=== PATIENT | male | born 1970 | race African-American/Black ===

== ENCOUNTER 2017-06-04 13:31 | Inpatient (IN) | payer OTHER ==
[2017-06-04 14:17] VITALS: BMI 32.5
--- NOTE | 2017-06-04 15:04 | HP ---
CIWA Score - CIWA Score Nausea/Vomitin-Mild Nausea/No Vomiting Muscle Tremors: 4-Moderate,w/Arms Extend Anxiety: 3 Agitation: 4-Moderately Restless Paroxysmal Sweats: 3 Orientation: 0-Oriented Tacttile Disturbances: 0-None Auditory Disturbances: 0-None Visual Disturbances: 0-None Headache: 0-None Present CIWA-Ar Total Score: 15 Admission ROS BHS - HPI Chief Complaint: I am here for detox. Allergies/Adverse Reactions: Allergies Allergy/AdvReac Type Severity Reaction Status Date / Time No Known Allergies Allergy Verified 06/04/17 14:37 History of Present Illness: Pt is a 46yr old male with a history of alcohol dependence only seeking detox for treatment. Exam Limitations: Intoxication - Ebola screening Have you traveled outside of the country in the last 21 days: No Have you had contact with anyone from an Ebola affected area: No Have you been sick,other than usual withdrawal symptoms: No Do you have a fever: No - Review of Systems Constitutional: Chills, Diaphoresis, Loss of Appetite, Night Sweats, Changes in sleep EENT: reports: Blurred Vision Respiratory: reports: No Symptoms reported Cardiac: reports: No Symptoms Reported GI: reports: Poor Appetite, Poor Fluid Intake : reports: No Symptoms Reported Musculoskeletal: reports: No Symptoms Reported Integumentary: reports: Flushing, Sweating Neuro: reports: Tingling, Tremors Endocrine: reports: Excessive Sweating, Flushing, Intolerance to Cold, Intolerance to Heat Hematology: reports: No Symptoms Reported Psychiatric: reports: No Sypmtoms Reported, Judgement Intact, Mood/Affect Appropiate, Orientated x3, Agitated, Anxious Other Systems: Reviewed and Negative Patient History - Patient Medical History Hx Anemia: No Hx Asthma: No Hx Chronic Obstructive Pulmonary Disease (COPD): No Hx Cancer: No Hx Cardiac Disorders: No Hx Congestive Heart Failure: No Hx Hypertension: Yes Hx Hypercholesterolemia: No Hx Pacemaker: No HX Cerebrovascular Accident: No Hx Seizures: No Hx Dementia: No Hx Diabetes: No Hx Gastrointestinal Disorders: No Hx Liver Disease: No Hx Genitourinary Disorders: No Hx Sexually Transmitted Disorders: Yes (gonorrhea at age 16) Hx Renal Disease (ESRD): No Hx Thyroid Disease: No Hx Human Immunodeficiency Virus (HIV): No (negative) Hx Hepatitis C: No (negative) Hx Depression: No Hx Suicide Attempt: No (denies) Hx Bipolar Disorder: No Hx Schizophrenia: No - Patient Surgical History Past Surgical History: No Hx Neurologic Surgery: No Hx Cataract Extraction: No Hx Cardiac Surgery: No Hx Lung Surgery: No Hx Breast Surgery: No Hx Breast Biopsy: No Hx Abdominal Surgery: No Hx Appendectomy: No Hx Cholecystectomy: No Hx Genitourinary Surgery: No Hx Section: No Hx Orthopedic Surgery: Yes Anesthesia Reaction: No - PPD History Previous Implant?: Yes Documented Results: Negative w/o proof Implanted On Prior R Admission?: No PPD to be Administered?: Yes - Reproductive History Patient is a Female of Child Bearing Age (11 -55 yrs old): No - Smoking Cessation Smoking history: Never smoked Have you smoked in the past 12 months: No Hx Chewing Tobacco Use: No Initiated information on smoking cessation: No - Substance & Tx. History Hx Alcohol Use: Yes Hx Substance Use: No Substance Use Type: Alcohol Hx Substance Use Treatment: Yes (last detox [facility] 2yrs ago. ) - Substances Abused Alcohol-cognac/beer Route: Oral Frequency: Daily Amount used: 2 pts./3-6 pks. Age of first use: 14 Date of Last Use: 06/04/17 Family Disease History - Family Disease History Family History: Denies Admission Physical Exam BHS - Vital Signs Vital Signs: Vital Signs - 24 hr 06/04/17 14:09 Temperature 98.2 F Pulse Rate 81 Respiratory 20 Rate Blood Pressure 157/121 - Physical General Appearance: Yes: Appropriately Dressed, Moderate Distress, Tremorous, Irritable, Sweating, Anxious HEENTM: Yes: Hearing grossly Normal, Normal Voice Respiratory: Yes: Lungs Clear, Normal Breath Sounds, No Respiratory Distress Neck: Yes: No masses,lesions,Nodules Breast: Yes: Within Normal Limits Cardiology: Yes: Regular Rhythm, Regular Rate, S1, S2 Abdominal: Yes: Normal Bowel Sounds, Non Tender, Soft Genitourinary: Yes: Within Normal Limits Back: Yes: Normal Inspection Musculoskeletal: Yes: full range of Motion, Gait Steady, Back pain Extremities: Yes: Normal Capillary Refill, Normal Inspection, Tremors Neurological: Yes: Fully Oriented, Alert, Normal Response Integumentary: Yes: Normal Color, Diaphoresis Lymphatic: Yes: Within Normal Limits - Diagnostic (1) Alcohol dependence with uncomplicated withdrawal Current Visit: Yes Status: Chronic (2) Hypertension Current Visit: Yes Status: Chronic Qualifiers: Hypertension type: essential hypertension Qualified Code(s): I10 - Essential (primary) hypertension; I10 - Essential (primary) hypertension; I10 - Essential (primary) hypertension Cleared for Admission [facility] - Detox or Rehab [facility] Level of Care: Medically Managed Detox Regimen/Protocol: Librium [facility] Breath Alcohol Content Breath Alcohol Content: 0.376 Urine Drug Screen - Results Drug Screen Negative: Yes
[2017-06-04] MEDS ORDERED: LOPERAMIDE HCL 2 MG CAPSULE PO PRN (15:05)
[2017-06-04] MEDS ORDERED: P-EPHED 60MG/TRIPROLIDI 2.5MG TABLET PO PRN (15:05)
[2017-06-04] MEDS ORDERED: MAG HYDROX/AL HYDROX/SIMETH 30 ML UNIT-DOSE CUP PO PRN (15:05)
[2017-06-04] MEDS ORDERED: MAGNESIUM HYDROX 2400MG/30ML ORAL SUSPENSION 30 ML CUP PO PRN (15:05)
[2017-06-04] MEDS ORDERED: MAGNESIUM CITRATE 300 ML BOTTLE PO PRN (15:05)
[2017-06-04] MEDS ORDERED: chlordiazePOXIDE HCL 25 MG CAPSULE PO ONE (15:05)
[2017-06-04] MEDS ORDERED: ACETAMINOPHEN 325 MG TABLET (FP) PO PRN (15:05)
[2017-06-04] MEDS ORDERED: hydrOXYzine PAMOATE 50 MG CAPSULE (FP) PO PRN (15:05)
[2017-06-04] MEDS ORDERED: IBUPROFEN 400 MG TABLET (FP) PO PRN (15:05)
[2017-06-04] MEDS ORDERED: MENTHOL/PHENOL 1 EACH UD MM PRN (15:05)
[2017-06-04] MEDS ORDERED: guaiFENesin/D-METHORPHAN HB 10 ML UNIT-DOSE CUPS PO PRN (15:05)
[2017-06-04] MEDS ORDERED: chlordiazePOXIDE HCL 25 MG CAPSULE PO PRN (15:05)
[2017-06-04] MEDS: chlordiazePOXIDE HCL 25 MG CAPSULE PO SCH ×2 (17:19→22:03)
[2017-06-04 18:44] LABS: URINE APPEARANCE CLEAR; URINE BILIRUBIN NEGATIVE (NEGATIVE); URINE BLOOD 1+ (NEGATIVE); URINE COLOR COLORLESS; URINE GLUCOSE (UA) 1+ (NEGATIVE); URINE KETONE NEGATIVE (NEGATIVE); URINE LEUK ESTERASE NEGATIVE (NEGATIVE); URINE NITRITE NEGATIVE (NEGATIVE); URINE PROTEIN NEGATIVE (NEGATIVE); URINE UROBILINOGEN NEGATIVE mg/dL (0.2-1.0)
[2017-06-04] MEDS: THIAMINE HCL 100 MG TABLET (FP) PO SCH (22:03)
[2017-06-04] MEDS: diphenhydrAMINE HCL 50 MG CAPSULE PO PRN (22:03)
[2017-06-05] MEDS: chlordiazePOXIDE HCL 25 MG CAPSULE PO SCH ×4 (05:42→22:10)
[2017-06-05 09:49] LABS: MCH 31.6 pg (25.7-33.7); MCHC 33.3 g/dl (32.0-35.9); MEAN CELL VOLUME 95.1 fl (80-96); MEAN PLT VOLUME 7.5 fl (7.5-11.1); PLATELET COUNT 328 K/MM3 (134-434); RDW 14.9 % (11.9-15.9)
--- NOTE | 2017-06-05 09:55 | EKG ---
Test Reason : Blood Pressure : / mmHG Vent. Rate : 068 BPM Atrial Rate : 068 BPM P-R Int : 166 ms QRS Dur : 086 ms QT Int : 418 ms P-R-T Axes : 067 046 056 degrees QTc Int : 444 ms NORMAL SINUS RHYTHM MINIMAL VOLTAGE CRITERIA FOR LVH, MAY BE NORMAL VARIANT BORDERLINE ECG NO PREVIOUS ECGS AVAILABLE Confirmed by JUDY JORGENSEN MD ([id number]) on 06/05/2017 9:55:16 AM Referred By: Confirmed By:JUDY JORGENSEN MD
[2017-06-05] MEDS: PRENATAL VITAMINS W/ FOLIC ACID TABLET (FP) PO SCH (10:07)
[2017-06-05] MEDS: HYDROCHLOROTHIAZIDE 25 MG TABLET (FP) PO SCH (10:08)
[2017-06-05 10:13] LABS: ALBUMIN 4.3 g/dl (3.4-5.0); ALK PHOS 44 U/L (45-117); ANION GAP 8 (8-16); BILIRUBIN,TOTAL 0.5 mg/dL (0.2-1.0); CO2 30 mmol/L (21-32); CREATININE 1.1 mg/dL (0.7-1.3); GLUCOSE,RANDOM 98 mg/dL (74-106); SGOT/AST 45 U/L (15-37); SGPT/ALT 44 U/L (12-78); TOT PROT 8.2 g/dl (6.4-8.2)
[2017-06-05] MEDS: amLODIPine BESYLATE 10 MG TABLET (FP) PO SCH (11:03)
--- NOTE | 2017-06-05 11:15 | CONSULT ---
[facility] Psychiatric Consult - Data Date of interview: 06/05/17 Admission source: [facility]PD Identifying data: Mr Chavarria is a 46 years old Black male, father of 5 children, unemployed on public assistance, living with family Substance Abuse History: Reports history of alcohol use. He started drinking alcohol at age 14, consumes 2 pints of cognac & 3x 6pk of beer daily. Last drank on 06/04/17 Medical History: Significant for HTN. Alcohol-related seizure and treatment for Gonorrhea Psychiatric History: Reports that he has been seeing a therapist for anger management at [facility] for the past 3 months. Denies previous psychiatric treatment with medication, psychiatric hospitalization or suicidal attempt Physical/Sexual Abuse/Trauma History: Denies history of verbal, physical or sexual abuse as DV relationship. No service Additional Comment: Reports history of 4 previous misdemeanors. No probation at present Mental Status Exam - Mental Status Exam Alert and Oriented to: Time, Place, Person Cognitive Function: Fair Patient Appearance: Well Groomed Mood: Hopeful, Euthymic Patient Behavior: Cooperative Speech Pattern: Clear Voice Loudness: Normal Thought Process: Intact, Goal Oriented Hallucinations: Denies Suicidal Ideation: Denies Homicidal Ideation: Denies Insight/Judgement: Poor Sleep: Well Appetite: Good Muscle strength/Tone: Normal Gait/Station: Normal Psychiatric Findings - Problem List ([place] 1, 2,3) (1) Impulse control disorder Current Visit: Yes Status: Acute (2) Intermittent explosive disorder Current Visit: Yes Status: Ruled-out (3) Alcohol dependence with uncomplicated withdrawal Current Visit: Yes Status: Chronic (4) Hypertension Current Visit: Yes Status: Chronic Qualifiers: Hypertension type: essential hypertension Qualified Code(s): I10 - Essential (primary) hypertension; I10 - Essential (primary) hypertension; I10 - Essential (primary) hypertension - Initial Treatment Plan Initial Treatment Plan: Continue inpatient detoxification
--- NOTE | 2017-06-05 12:29 | PN ---
[facility] CIWA - CIWA Score Nausea/Vomitin-No Nausea/No Vomiting Muscle Tremors: 4-Moderate,w/Arms Extend Anxiety: 4-Mod. Anxious/Guarded Agitation: 4-Moderately Restless Paroxysmal Sweats: 1-Minimal Palms Moist Orientation: 0-Oriented Tacttile Disturbances: 3-Moderate Itch/Numb/Burn Auditory Disturbances: 0-None Visual Disturbances: 0-None Headache: 0-None Present CIWA-Ar Total Score: 16 BHS Progress Note (SOAP) Subjective: ANXIETY,SWEATS, TREMORS,INTERMITTENT SLEEP. Objective: 06/05/17 12:28 Vital Signs Temperature 98.5 F 06/05/17 09:10 Pulse Rate 86 06/05/17 09:10 Respiratory Rate 18 06/05/17 09:10 Blood Pressure 159/102 06/05/17 09:10 O2 Sat by Pulse Oximetry (%) Laboratory Last Values WBC 3.0 K/mm3 (4.0-10.0) L 06/05/17 06:20 RBC 4.80 M/mm3 (4.00-5.60) 06/05/17 06:20 Hgb 15.2 GM/dL (11.7-16.9) 06/05/17 06:20 Hct 45.7 % (35.4-49) 06/05/17 06:20 MCV 95.1 fl (80-96) 06/05/17 06:20 MCH 31.6 pg (25.7-33.7) 06/05/17 06:20 MCHC 33.3 g/dl (32.0-35.9) 06/05/17 06:20 RDW 14.9 % (11.9-15.9) 06/05/17 06:20 Plt Count 328 K/MM3 (134-434) 06/05/17 06:20 MPV 7.5 fl (7.5-11.1) 06/05/17 06:20 Sodium 142 mmol/L (136-145) 06/05/17 06:20 Potassium 4.2 mmol/L (3.5-5.1) 06/05/17 06:20 Chloride 104 mmol/L (98-107) 06/05/17 06:20 Carbon Dioxide 30 mmol/L (21-32) 06/05/17 06:20 Anion Gap 8 (8-16) 06/05/17 06:20 BUN 7 mg/dL (7-18) 06/05/17 06:20 Creatinine 1.1 mg/dL (0.7-1.3) 06/05/17 06:20 Creat Clearance w eGFR > 60 (>60) 06/05/17 06:20 Random Glucose 98 mg/dL (74-106) 06/05/17 06:20 Calcium 9.0 mg/dL (8.5-10.1) 06/05/17 06:20 Total Bilirubin 0.5 mg/dL (0.2-1.0) 06/05/17 06:20 AST 45 U/L (15-37) H 06/05/17 06:20 ALT 44 U/L (12-78) 06/05/17 06:20 Alkaline Phosphatase 44 U/L (45-117) L 06/05/17 06:20 Total Protein 8.2 g/dl (6.4-8.2) 06/05/17 06:20 Albumin 4.3 g/dl (3.4-5.0) 06/05/17 06:20 Urine Color Colorless 06/04/17 17:45 Urine Appearance Clear 06/04/17 17:45 Urine pH 6.0 (5.0-8.0) 06/04/17 17:45 Ur Specific [place] <= 1.005 (1.005-1.025) 06/04/17 17:45 Urine Protein Negative (NEGATIVE) 06/04/17 17:45 Urine Glucose (UA) 1+ (NEGATIVE) H 06/04/17 17:45 Urine Ketones Negative (NEGATIVE) 06/04/17 17:45 Urine Blood 1+ (NEGATIVE) H 06/04/17 17:45 Urine Nitrite Negative (NEGATIVE) 06/04/17 17:45 Urine Bilirubin Negative (NEGATIVE) 06/04/17 17:45 Urine Urobilinogen Negative mg/dL (0.2-1.0) 06/04/17 17:45 Urine RBC None /hpf (0-3) 06/04/17 17:45 Urine WBC None /hpf (3-5) 06/04/17 17:45 Ur Epithelial Cells Rare /hpf (FEW) 06/04/17 17:45 RPR Titer Nonreactive (NONREACTIVE) 06/05/17 06:20 Assessment: 06/05/17 12:28 WITHDRAWAL SX Plan: CONTINUE DETOX
[2017-06-05] MEDS: diphenhydrAMINE HCL 50 MG CAPSULE PO PRN (22:10)
[2017-06-05] MEDS: THIAMINE HCL 100 MG TABLET (FP) PO SCH (22:10)
[2017-06-06] MEDS: chlordiazePOXIDE HCL 25 MG CAPSULE PO SCH ×2 (05:43→10:21)
[2017-06-06] MEDS: HYDROCHLOROTHIAZIDE 25 MG TABLET (FP) PO SCH (10:21)
[2017-06-06] MEDS: PRENATAL VITAMINS W/ FOLIC ACID TABLET (FP) PO SCH (10:21)
[2017-06-06] MEDS: amLODIPine BESYLATE 10 MG TABLET (FP) PO SCH (10:21)
--- NOTE | 2017-06-06 11:48 | PN ---
[facility] CIWA - CIWA Score Nausea/Vomitin-No Nausea/No Vomiting Muscle Tremors: 4-Moderate,w/Arms Extend Anxiety: 4-Mod. Anxious/Guarded Agitation: 4-Moderately Restless Paroxysmal Sweats: 1-Minimal Palms Moist Orientation: 0-Oriented Tacttile Disturbances: 3-Moderate Itch/Numb/Burn Auditory Disturbances: 0-None Visual Disturbances: 0-None Headache: 0-None Present CIWA-Ar Total Score: 16 BHS Progress Note (SOAP) Subjective: ANXIETY,SWEATS, DECREASED TREMORS. Objective: 06/06/17 11:47 Vital Signs 06/06/17 06/06/17 06:26 09:20 Temperature 96.3 F L 96.8 F L Pulse Rate 75 79 Respiratory 18 18 Rate Blood Pressure 133/95 149/99 Laboratory Last Values WBC 3.0 K/mm3 (4.0-10.0) L 06/05/17 06:20 RBC 4.80 M/mm3 (4.00-5.60) 06/05/17 06:20 Hgb 15.2 GM/dL (11.7-16.9) 06/05/17 06:20 Hct 45.7 % (35.4-49) 06/05/17 06:20 MCV 95.1 fl (80-96) 06/05/17 06:20 MCH 31.6 pg (25.7-33.7) 06/05/17 06:20 MCHC 33.3 g/dl (32.0-35.9) 06/05/17 06:20 RDW 14.9 % (11.9-15.9) 06/05/17 06:20 Plt Count 328 K/MM3 (134-434) 06/05/17 06:20 MPV 7.5 fl (7.5-11.1) 06/05/17 06:20 Sodium 142 mmol/L (136-145) 06/05/17 06:20 Potassium 4.2 mmol/L (3.5-5.1) 06/05/17 06:20 Chloride 104 mmol/L (98-107) 06/05/17 06:20 Carbon Dioxide 30 mmol/L (21-32) 06/05/17 06:20 Anion Gap 8 (8-16) 06/05/17 06:20 BUN 7 mg/dL (7-18) 06/05/17 06:20 Creatinine 1.1 mg/dL (0.7-1.3) 06/05/17 06:20 Creat Clearance w eGFR > 60 (>60) 06/05/17 06:20 Random Glucose 98 mg/dL (74-106) 06/05/17 06:20 Calcium 9.0 mg/dL (8.5-10.1) 06/05/17 06:20 Total Bilirubin 0.5 mg/dL (0.2-1.0) 06/05/17 06:20 AST 45 U/L (15-37) H 06/05/17 06:20 ALT 44 U/L (12-78) 06/05/17 06:20 Alkaline Phosphatase 44 U/L (45-117) L 06/05/17 06:20 Total Protein 8.2 g/dl (6.4-8.2) 06/05/17 06:20 Albumin 4.3 g/dl (3.4-5.0) 06/05/17 06:20 Urine Color Colorless 06/04/17 17:45 Urine Appearance Clear 06/04/17 17:45 Urine pH 6.0 (5.0-8.0) 06/04/17 17:45 Ur Specific [place] <= 1.005 (1.005-1.025) 06/04/17 17:45 Urine Protein Negative (NEGATIVE) 06/04/17 17:45 Urine Glucose (UA) 1+ (NEGATIVE) H 06/04/17 17:45 Urine Ketones Negative (NEGATIVE) 06/04/17 17:45 Urine Blood 1+ (NEGATIVE) H 06/04/17 17:45 Urine Nitrite Negative (NEGATIVE) 06/04/17 17:45 Urine Bilirubin Negative (NEGATIVE) 06/04/17 17:45 Urine Urobilinogen Negative mg/dL (0.2-1.0) 06/04/17 17:45 Urine RBC None /hpf (0-3) 06/04/17 17:45 Urine WBC None /hpf (3-5) 06/04/17 17:45 Ur Epithelial Cells Rare /hpf (FEW) 06/04/17 17:45 RPR Titer Nonreactive (NONREACTIVE) 06/05/17 06:20 Assessment: 06/06/17 11:48 WITHDRAWAL SX Plan: CONTINUE DETOX
[2017-06-06] MEDS: chlordiazePOXIDE 5 MG CAPSULE PO SCH ×2 (17:21→22:10)
[2017-06-06] MEDS: diphenhydrAMINE HCL 50 MG CAPSULE PO PRN (22:10)
[2017-06-06] MEDS: THIAMINE HCL 100 MG TABLET (FP) PO SCH (22:10)
[2017-06-07] MEDS: chlordiazePOXIDE 5 MG CAPSULE PO SCH ×2 (05:11→10:06)
[2017-06-07] MEDS: amLODIPine BESYLATE 10 MG TABLET (FP) PO SCH (10:05)
[2017-06-07] MEDS: PRENATAL VITAMINS W/ FOLIC ACID TABLET (FP) PO SCH (10:05)
[2017-06-07] MEDS: HYDROCHLOROTHIAZIDE 25 MG TABLET (FP) PO SCH (10:05)
--- NOTE | 2017-06-07 10:35 | PN ---
BHS Progress Note (SOAP) Subjective: DECREASED WITHDRAWAL SX OF ANXIETY,TREMORS,SWEATS. Objective: 06/07/17 10:34 Vital Signs Temperature 98.3 F 06/07/17 08:59 Pulse Rate 89 06/07/17 08:59 Respiratory Rate 18 06/07/17 08:59 Blood Pressure 128/89 06/07/17 08:59 O2 Sat by Pulse Oximetry (%) Laboratory Last Values WBC 3.0 K/mm3 (4.0-10.0) L 06/05/17 06:20 RBC 4.80 M/mm3 (4.00-5.60) 06/05/17 06:20 Hgb 15.2 GM/dL (11.7-16.9) 06/05/17 06:20 Hct 45.7 % (35.4-49) 06/05/17 06:20 MCV 95.1 fl (80-96) 06/05/17 06:20 MCH 31.6 pg (25.7-33.7) 06/05/17 06:20 MCHC 33.3 g/dl (32.0-35.9) 06/05/17 06:20 RDW 14.9 % (11.9-15.9) 06/05/17 06:20 Plt Count 328 K/MM3 (134-434) 06/05/17 06:20 MPV 7.5 fl (7.5-11.1) 06/05/17 06:20 Sodium 142 mmol/L (136-145) 06/05/17 06:20 Potassium 4.2 mmol/L (3.5-5.1) 06/05/17 06:20 Chloride 104 mmol/L (98-107) 06/05/17 06:20 Carbon Dioxide 30 mmol/L (21-32) 06/05/17 06:20 Anion Gap 8 (8-16) 06/05/17 06:20 BUN 7 mg/dL (7-18) 06/05/17 06:20 Creatinine 1.1 mg/dL (0.7-1.3) 06/05/17 06:20 Creat Clearance w eGFR > 60 (>60) 06/05/17 06:20 Random Glucose 98 mg/dL (74-106) 06/05/17 06:20 Calcium 9.0 mg/dL (8.5-10.1) 06/05/17 06:20 Total Bilirubin 0.5 mg/dL (0.2-1.0) 06/05/17 06:20 AST 45 U/L (15-37) H 06/05/17 06:20 ALT 44 U/L (12-78) 06/05/17 06:20 Alkaline Phosphatase 44 U/L (45-117) L 06/05/17 06:20 Total Protein 8.2 g/dl (6.4-8.2) 06/05/17 06:20 Albumin 4.3 g/dl (3.4-5.0) 06/05/17 06:20 Urine Color Colorless 06/04/17 17:45 Urine Appearance Clear 06/04/17 17:45 Urine pH 6.0 (5.0-8.0) 06/04/17 17:45 Ur Specific [place] <= 1.005 (1.005-1.025) 06/04/17 17:45 Urine Protein Negative (NEGATIVE) 06/04/17 17:45 Urine Glucose (UA) 1+ (NEGATIVE) H 06/04/17 17:45 Urine Ketones Negative (NEGATIVE) 06/04/17 17:45 Urine Blood 1+ (NEGATIVE) H 06/04/17 17:45 Urine Nitrite Negative (NEGATIVE) 06/04/17 17:45 Urine Bilirubin Negative (NEGATIVE) 06/04/17 17:45 Urine Urobilinogen Negative mg/dL (0.2-1.0) 06/04/17 17:45 Urine RBC None /hpf (0-3) 06/04/17 17:45 Urine WBC None /hpf (3-5) 06/04/17 17:45 Ur Epithelial Cells Rare /hpf (FEW) 06/04/17 17:45 RPR Titer Nonreactive (NONREACTIVE) 06/05/17 06:20 Assessment: 06/07/17 10:34 DECREASED WITHDRAWAL SX Plan: CONTINUE DETOX
[2017-06-07] MEDS: chlordiazePOXIDE HCL 10 MG CAPSULE PO SCH ×2 (17:50→22:22)
[2017-06-07] MEDS: diphenhydrAMINE HCL 50 MG CAPSULE PO PRN (22:22)
[2017-06-07] MEDS: THIAMINE HCL 100 MG TABLET (FP) PO SCH (22:22)
[2017-06-08] MEDS: chlordiazePOXIDE HCL 10 MG CAPSULE PO SCH (05:26)
[2017-06-08 06:47] VITALS: BP 130/89; PULSE 105; TEMP 97.7
[2017-06-08] MEDS: amLODIPine BESYLATE 10 MG TABLET (FP) PO SCH (09:32)
[2017-06-08] MEDS: HYDROCHLOROTHIAZIDE 25 MG TABLET (FP) PO SCH (09:32)
[2017-06-08] MEDS: PRENATAL VITAMINS W/ FOLIC ACID TABLET (FP) PO SCH (09:32)
--- NOTE | 2017-06-08 10:10 | DS ---
[facility] Detox Discharge Summary Admission Date: 06/04/17 Discharge Date: 06/08/17 - History Present History: Alcohol Dependence Additional Comments: DETOX COMPLETED. PT IS ALERT AND ORIENTED X 3. NAD. ENCOURAGED TO FOLLOW UP WITH PM D AT [facility]. Pertinent Past History: HTN, IMPULSE CONTROL DISORDER - Physical Exam Results Vital Signs: Vital Signs Temperature 97.7 F 06/08/17 06:46 Pulse Rate 105 H 06/08/17 06:46 Respiratory Rate 18 06/08/17 06:46 Blood Pressure 130/89 06/08/17 06:46 O2 Sat by Pulse Oximetry (%) Laboratory Last Values WBC 3.0 K/mm3 (4.0-10.0) L 06/05/17 06:20 RBC 4.80 M/mm3 (4.00-5.60) 06/05/17 06:20 Hgb 15.2 GM/dL (11.7-16.9) 06/05/17 06:20 Hct 45.7 % (35.4-49) 06/05/17 06:20 MCV 95.1 fl (80-96) 06/05/17 06:20 MCH 31.6 pg (25.7-33.7) 06/05/17 06:20 MCHC 33.3 g/dl (32.0-35.9) 06/05/17 06:20 RDW 14.9 % (11.9-15.9) 06/05/17 06:20 Plt Count 328 K/MM3 (134-434) 06/05/17 06:20 MPV 7.5 fl (7.5-11.1) 06/05/17 06:20 Sodium 142 mmol/L (136-145) 06/05/17 06:20 Potassium 4.2 mmol/L (3.5-5.1) 06/05/17 06:20 Chloride 104 mmol/L (98-107) 06/05/17 06:20 Carbon Dioxide 30 mmol/L (21-32) 06/05/17 06:20 Anion Gap 8 (8-16) 06/05/17 06:20 BUN 7 mg/dL (7-18) 06/05/17 06:20 Creatinine 1.1 mg/dL (0.7-1.3) 06/05/17 06:20 Creat Clearance w eGFR > 60 (>60) 06/05/17 06:20 Random Glucose 98 mg/dL (74-106) 06/05/17 06:20 Calcium 9.0 mg/dL (8.5-10.1) 06/05/17 06:20 Total Bilirubin 0.5 mg/dL (0.2-1.0) 06/05/17 06:20 AST 45 U/L (15-37) H 06/05/17 06:20 ALT 44 U/L (12-78) 06/05/17 06:20 Alkaline Phosphatase 44 U/L (45-117) L 06/05/17 06:20 Total Protein 8.2 g/dl (6.4-8.2) 06/05/17 06:20 Albumin 4.3 g/dl (3.4-5.0) 06/05/17 06:20 Urine Color Colorless 06/04/17 17:45 Urine Appearance Clear 06/04/17 17:45 Urine pH 6.0 (5.0-8.0) 06/04/17 17:45 Ur Specific [place] <= 1.005 (1.005-1.025) 06/04/17 17:45 Urine Protein Negative (NEGATIVE) 06/04/17 17:45 Urine Glucose (UA) 1+ (NEGATIVE) H 06/04/17 17:45 Urine Ketones Negative (NEGATIVE) 06/04/17 17:45 Urine Blood 1+ (NEGATIVE) H 06/04/17 17:45 Urine Nitrite Negative (NEGATIVE) 06/04/17 17:45 Urine Bilirubin Negative (NEGATIVE) 06/04/17 17:45 Urine Urobilinogen Negative mg/dL (0.2-1.0) 06/04/17 17:45 Urine RBC None /hpf (0-3) 06/04/17 17:45 Urine WBC None /hpf (3-5) 06/04/17 17:45 Ur Epithelial Cells Rare /hpf (FEW) 06/04/17 17:45 RPR Titer Nonreactive (NONREACTIVE) 06/05/17 06:20 LABS REVIEWED Pertinent Admission Physical Exam Findings: WITHDRAWAL SX - Treatment Hospital Course: Detox Protocol Followed, Detoxed Safely, Responded well, Discharged Condition Good Patient has Accepted a Rehab Referral to: REFUSED AFTERCARE PLAN. REFERRED TO [facility] - Medication Discharge Medications: Ambulatory Orders Hydrochlorothiazide [Hctz -] 25 mg PO DAILY 06/04/17 Amlodipine Besylate 10 mg PO DAILY 06/05/17 - Diagnosis (1) Alcohol dependence with uncomplicated withdrawal Status: Acute (2) Impulse control disorder Status: Acute (3) Hypertension Status: Chronic Qualifiers: Hypertension type: essential hypertension Qualified Code(s): I10 - Essential (primary) hypertension; I10 - Essential (primary) hypertension; I10 - Essential (primary) hypertension - AMA Did Patient Leave Against Medical Advice: No
== END 2017-06-08 09:42 | disposition home or self-care (01) | DRG 775 ==
LOC: YASAS 13:31 → Y3N 15:50
PROVIDERS: ADMIT Internal Medicine; ATTEND Internal Medicine
PROC: HZ2ZZZZ Detoxification Services for Substance Abuse Treatment (ICD-10-PCS; principal; 2017-06-04)
DX: F10.230 Alcohol dependence with withdrawal, uncomplicated (principal); I10 Essential (primary) hypertension; F63.81 Intermittent explosive disorder; F63.89 Other impulse disorders; Z87.438 Personal history of other diseases of male genital organs
CPT/HCPCS: 36415; 80053; 81003; 81015; 85027; 86593; 93005; 93010

== ENCOUNTER 2021-11-01 14:52 | Inpatient (IN) | payer OTHER ==
[2021-11-01] MEDS ORDERED: ACETAMINOPHEN 325 MG TABLET (FP) PO PRN ×2 (15:36)
[2021-11-01] MEDS ORDERED: NICOTINE 10 MG CARTRIDGE (INHALER) IH PRN (15:36)
[2021-11-01] MEDS ORDERED: MAGNESIUM CITRATE 300 ML BOTTLE PO PRN (15:36)
[2021-11-01] MEDS ORDERED: IBUPROFEN 400 MG TABLET (FP) PO PRN (15:36)
[2021-11-01] MEDS ORDERED: ONDANSETRON *ODT* 4 MG TABLET SL PRN (15:36)
[2021-11-01] MEDS ORDERED: METHOCARBAMOL 500 MG TABLET PO PRN (15:36)
[2021-11-01] MEDS ORDERED: LOPERAMIDE HCL 2 MG CAPSULE PO PRN (15:36)
[2021-11-01] MEDS ORDERED: MAGNESIUM HYDROX 2400MG/30ML ORAL SUSPENSION 30 ML CUP PO PRN (15:36)
[2021-11-01] MEDS ORDERED: MAG HYDROX/AL HYDROX/SIMETH 30 ML UNIT-DOSE CUP PO PRN (15:36)
[2021-11-01] MEDS ORDERED: MENTHOL/PHENOL 1 EACH UD MM PRN (15:36)
[2021-11-01] MEDS ORDERED: BISMUTH SUBSALICYLATE 524 MG/30 ML PO PRN (15:36)
[2021-11-01 22:21] VITALS: BMI 27.7
[2021-11-01] MEDS: THIAMINE HCL 100 MG TABLET (FP) PO SCH (22:59)
[2021-11-01] MEDS: hydrOXYzine PAMOATE 25 MG CAPSULE (FP) PO SCH ×2 (22:59→23:20)
[2021-11-01] MEDS: MELATONIN 5 MG TABLETS PO SCH (23:00)
[2021-11-02] MEDS: hydrOXYzine PAMOATE 25 MG CAPSULE (FP) PO SCH ×5 (05:50→22:03)
[2021-11-02] MEDS: PRENATAL VITAMINS W/ FOLIC ACID TABLET (FP) PO SCH (10:20)
[2021-11-02] MEDS: levETIRAcetam 500 MG TABLET (FP) PO SCH ×2 (11:02→22:03)
[2021-11-02] MEDS: amLODIPine BESYLATE 10 MG TABLET (FP) PO SCH (11:02)
[2021-11-02] MEDS ORDERED: FLU VACC QS2021-22(6MOS UP)/PF 60 MCG/0.5 ML SYRINGE IM ONE (13:00)
[2021-11-02 14:16] LABS: HEMATOCRIT 34.4 % (35.4-49); HEMOGLOBIN 11.4 GM/dL (11.7-16.9); MCH 34.3 pg (25.7-33.7); MCHC 33.2 g/dl (32.0-35.9); MEAN CELL VOLUME 103.5 fl (80-96); MEAN PLT VOLUME 8.3 fl (7.5-11.1); PLATELET COUNT 313 10^3/uL (134-434); RBC 3.33 M/mm3 (4.00-5.60); RDW 12.7 % (11.9-15.9); WHITE BLOOD COUNT 5.2 K/mm3 (4.0-10.0)
[2021-11-02 14:27] LABS: CALCIUM 9.5 mg/dL (8.5-10.1)
[2021-11-02 14:28] LABS: ALBUMIN 3.5 g/dl (3.4-5.0); BLOOD UREA NITROGEN 11.7 mg/dL (7-18)
[2021-11-02 14:33] LABS: BILIRUBIN,TOTAL 0.8 mg/dL (0.2-1); TOT PROT 6.4 g/dl (6.4-8.2)
[2021-11-02 15:13] LABS: HIV INTERPRETATION NEGATIVE (NEGATIVE)
[2021-11-02] MEDS ORDERED: ATORVASTATIN CA 40 MG TABLET (FP) PO SCH (22:00)
[2021-11-02] MEDS: THIAMINE HCL 100 MG TABLET (FP) PO SCH (22:03)
[2021-11-02] MEDS: MELATONIN 5 MG TABLETS PO SCH (22:03)
[2021-11-03] MEDS: hydrOXYzine PAMOATE 25 MG CAPSULE (FP) PO SCH ×2 (05:35→10:23)
[2021-11-03 09:18] VITALS: BP 115/67; PULSE 68; TEMP 98.6
[2021-11-03] MEDS: levETIRAcetam 500 MG TABLET (FP) PO SCH (10:22)
[2021-11-03] MEDS: amLODIPine BESYLATE 10 MG TABLET (FP) PO SCH (10:22)
[2021-11-03] MEDS: PRENATAL VITAMINS W/ FOLIC ACID TABLET (FP) PO SCH (10:23)
[2021-11-03 12:08] LABS: SARS-CoV-2 NAA Not Detected (Not Detected)
== END 2021-11-03 10:30 | disposition home or self-care (01) | DRG 775 ==
LOC: YASAS 14:52 → Y6N 21:33
PROVIDERS: ADMIT Allergy & Immunology; ATTEND Allergy & Immunology
PROC: HZ2ZZZZ Detoxification Services for Substance Abuse Treatment (ICD-10-PCS; principal; 2021-11-01)
DX: F10.230 Alcohol dependence with withdrawal, uncomplicated (principal); F63.9 Impulse disorder, unspecified; E78.5 Hyperlipidemia, unspecified; I10 Essential (primary) hypertension; Z86.69 Personal history of other diseases of the nervous system and sense organs
CPT/HCPCS: 36415; 80053; 80177; 82306; 82607; 85027; 86780; 87389; 90686; 93005; 93010; C9803-CS; G0008; U0003; U0005

== ENCOUNTER 2021-11-03 17:27 | Inpatient (IN) | payer OTHER ==
[2021-11-03 18:06] VITALS: BMI 28.0
[2021-11-03] MEDS ORDERED: MAGNESIUM CITRATE 300 ML BOTTLE PO PRN (18:54)
[2021-11-03] MEDS ORDERED: LOPERAMIDE HCL 2 MG CAPSULE PO PRN (18:54)
[2021-11-03] MEDS ORDERED: MENTHOL/PHENOL 1 EACH UD MM PRN (18:54)
[2021-11-03] MEDS ORDERED: MAG HYDROX/AL HYDROX/SIMETH 30 ML UNIT-DOSE CUP PO PRN (18:54)
[2021-11-03] MEDS ORDERED: ACETAMINOPHEN 325 MG TABLET (FP) PO PRN (18:54)
[2021-11-03] MEDS ORDERED: guaiFENesin 200 MG/10 ML 10 ML UNIT-DOSE CUPS PO PRN (18:54)
[2021-11-03] MEDS ORDERED: MAGNESIUM HYDROX 2400MG/30ML ORAL SUSPENSION 30 ML CUP PO PRN (18:54)
[2021-11-03] MEDS ORDERED: P-EPHED 60MG/TRIPROLIDI 2.5MG TABLET PO PRN (18:54)
[2021-11-03] MEDS: amLODIPine BESYLATE 10 MG TABLET (FP) PO SCH (21:40)
[2021-11-03] MEDS: THIAMINE HCL 100 MG TABLET (FP) PO SCH (21:41)
[2021-11-03] MEDS: ATORVASTATIN CA 20 MG TABLET (FP) PO SCH (21:41)
[2021-11-03] MEDS: levETIRAcetam 500 MG TABLET (FP) PO SCH (21:41)
[2021-11-04 02:36] LABS: PH,URINE 7.5 (5.0-8.0); URINE APPEARANCE CLEAR; URINE BILIRUBIN NEGATIVE (NEGATIVE); URINE COLOR YELLOW; URINE GLUCOSE (UA) NEGATIVE (NEGATIVE); URINE KETONE TRACE (NEGATIVE); URINE LEUK ESTERASE NEGATIVE (NEGATIVE); URINE NITRITE NEGATIVE (NEGATIVE); URINE PROTEIN NEGATIVE (NEGATIVE)
[2021-11-04] MEDS: FERROUS SO4 325 MG TABLET (FP) PO SCH (07:08)
[2021-11-04] MEDS: PRENATAL VITAMINS W/ FOLIC ACID TABLET (FP) PO SCH (10:38)
[2021-11-04] MEDS: amLODIPine BESYLATE 10 MG TABLET (FP) PO SCH (10:38)
[2021-11-04] MEDS: levETIRAcetam 500 MG TABLET (FP) PO SCH ×2 (10:38→21:20)
[2021-11-04] MEDS: THIAMINE HCL 100 MG TABLET (FP) PO SCH (21:20)
[2021-11-04] MEDS: ATORVASTATIN CA 20 MG TABLET (FP) PO SCH (21:20)
[2021-11-04] MEDS: MELATONIN 5 MG TABLETS PO PRN (21:21)
[2021-11-05] MEDS: FERROUS SO4 325 MG TABLET (FP) PO SCH (07:08)
[2021-11-05] MEDS: PRENATAL VITAMINS W/ FOLIC ACID TABLET (FP) PO SCH (10:02)
[2021-11-05] MEDS: amLODIPine BESYLATE 10 MG TABLET (FP) PO SCH (10:02)
[2021-11-05] MEDS: levETIRAcetam 500 MG TABLET (FP) PO SCH ×2 (10:02→21:17)
[2021-11-05 14:11] LABS: SARS-CoV-2 NAA Not Detected (Not Detected)
[2021-11-05] MEDS: MELATONIN 5 MG TABLETS PO PRN (21:17)
[2021-11-05] MEDS: THIAMINE HCL 100 MG TABLET (FP) PO SCH (21:17)
[2021-11-05] MEDS: ATORVASTATIN CA 20 MG TABLET (FP) PO SCH (21:18)
[2021-11-06] MEDS: FERROUS SO4 325 MG TABLET (FP) PO SCH (07:04)
[2021-11-06] MEDS: levETIRAcetam 500 MG TABLET (FP) PO SCH ×2 (10:02→21:19)
[2021-11-06] MEDS: PRENATAL VITAMINS W/ FOLIC ACID TABLET (FP) PO SCH (10:02)
[2021-11-06] MEDS: amLODIPine BESYLATE 10 MG TABLET (FP) PO SCH (10:03)
[2021-11-06] MEDS: MELATONIN 5 MG TABLETS PO PRN (21:19)
[2021-11-06] MEDS: THIAMINE HCL 100 MG TABLET (FP) PO SCH (21:19)
[2021-11-06] MEDS: ATORVASTATIN CA 20 MG TABLET (FP) PO SCH (21:19)
[2021-11-07] MEDS: FERROUS SO4 325 MG TABLET (FP) PO SCH (07:04)
[2021-11-07] MEDS: levETIRAcetam 500 MG TABLET (FP) PO SCH ×2 (10:18→21:08)
[2021-11-07] MEDS: amLODIPine BESYLATE 10 MG TABLET (FP) PO SCH (10:19)
[2021-11-07] MEDS: PRENATAL VITAMINS W/ FOLIC ACID TABLET (FP) PO SCH (10:19)
[2021-11-07] MEDS: MELATONIN 5 MG TABLETS PO PRN (21:08)
[2021-11-07] MEDS: ATORVASTATIN CA 20 MG TABLET (FP) PO SCH (21:08)
[2021-11-07] MEDS: THIAMINE HCL 100 MG TABLET (FP) PO SCH (21:08)
[2021-11-08] MEDS: FERROUS SO4 325 MG TABLET (FP) PO SCH (07:06)
[2021-11-08] MEDS: levETIRAcetam 500 MG TABLET (FP) PO SCH ×2 (09:59→21:08)
[2021-11-08] MEDS: PRENATAL VITAMINS W/ FOLIC ACID TABLET (FP) PO SCH (09:59)
[2021-11-08] MEDS: amLODIPine BESYLATE 10 MG TABLET (FP) PO SCH (09:59)
[2021-11-08] MEDS: MELATONIN 5 MG TABLETS PO PRN (21:08)
[2021-11-08] MEDS: THIAMINE HCL 100 MG TABLET (FP) PO SCH (21:08)
[2021-11-08] MEDS: ATORVASTATIN CA 20 MG TABLET (FP) PO SCH (21:08)
[2021-11-09] MEDS: FERROUS SO4 325 MG TABLET (FP) PO SCH (07:02)
[2021-11-09] MEDS: levETIRAcetam 500 MG TABLET (FP) PO SCH ×2 (09:55→21:07)
[2021-11-09] MEDS: PRENATAL VITAMINS W/ FOLIC ACID TABLET (FP) PO SCH (09:55)
[2021-11-09] MEDS: amLODIPine BESYLATE 10 MG TABLET (FP) PO SCH (09:55)
[2021-11-09] MEDS: ATORVASTATIN CA 20 MG TABLET (FP) PO SCH (21:07)
[2021-11-09] MEDS: MELATONIN 5 MG TABLETS PO PRN (21:07)
[2021-11-09] MEDS: THIAMINE HCL 100 MG TABLET (FP) PO SCH (21:07)
[2021-11-10] MEDS: FERROUS SO4 325 MG TABLET (FP) PO SCH (07:11)
[2021-11-10] MEDS: PRENATAL VITAMINS W/ FOLIC ACID TABLET (FP) PO SCH (10:10)
[2021-11-10] MEDS: amLODIPine BESYLATE 10 MG TABLET (FP) PO SCH (10:10)
[2021-11-10] MEDS: levETIRAcetam 500 MG TABLET (FP) PO SCH ×2 (10:11→21:12)
[2021-11-10] MEDS: MELATONIN 5 MG TABLETS PO PRN (21:12)
[2021-11-10] MEDS: ATORVASTATIN CA 20 MG TABLET (FP) PO SCH (21:12)
[2021-11-10] MEDS: THIAMINE HCL 100 MG TABLET (FP) PO SCH (21:12)
[2021-11-11] MEDS: FERROUS SO4 325 MG TABLET (FP) PO SCH (07:35)
[2021-11-11] MEDS: amLODIPine BESYLATE 10 MG TABLET (FP) PO SCH (10:00)
[2021-11-11] MEDS: PRENATAL VITAMINS W/ FOLIC ACID TABLET (FP) PO SCH (10:00)
[2021-11-11] MEDS: levETIRAcetam 500 MG TABLET (FP) PO SCH ×2 (10:00→21:42)
[2021-11-11] MEDS: ATORVASTATIN CA 20 MG TABLET (FP) PO SCH (21:42)
[2021-11-11] MEDS: THIAMINE HCL 100 MG TABLET (FP) PO SCH (21:42)
[2021-11-12] MEDS: FERROUS SO4 325 MG TABLET (FP) PO SCH (07:25)
[2021-11-12] MEDS: amLODIPine BESYLATE 10 MG TABLET (FP) PO SCH (09:52)
[2021-11-12] MEDS: levETIRAcetam 500 MG TABLET (FP) PO SCH ×2 (09:52→21:05)
[2021-11-12] MEDS: PRENATAL VITAMINS W/ FOLIC ACID TABLET (FP) PO SCH (09:52)
[2021-11-12] MEDS: IBUPROFEN 400 MG TABLET (FP) PO PRN (15:20)
[2021-11-12] MEDS: ATORVASTATIN CA 20 MG TABLET (FP) PO SCH (21:04)
[2021-11-12] MEDS: THIAMINE HCL 100 MG TABLET (FP) PO SCH (21:05)
[2021-11-12] MEDS: MELATONIN 5 MG TABLETS PO PRN (21:05)
[2021-11-13] MEDS: FERROUS SO4 325 MG TABLET (FP) PO SCH (07:23)
[2021-11-13] MEDS: levETIRAcetam 500 MG TABLET (FP) PO SCH ×2 (10:02→21:18)
[2021-11-13] MEDS: amLODIPine BESYLATE 10 MG TABLET (FP) PO SCH (10:02)
[2021-11-13] MEDS: PRENATAL VITAMINS W/ FOLIC ACID TABLET (FP) PO SCH (10:02)
[2021-11-13] MEDS: THIAMINE HCL 100 MG TABLET (FP) PO SCH (21:18)
[2021-11-13] MEDS: ATORVASTATIN CA 20 MG TABLET (FP) PO SCH (21:18)
[2021-11-13] MEDS: MELATONIN 5 MG TABLETS PO PRN (21:18)
[2021-11-14] MEDS: FERROUS SO4 325 MG TABLET (FP) PO SCH (07:10)
[2021-11-14] MEDS: PRENATAL VITAMINS W/ FOLIC ACID TABLET (FP) PO SCH (09:45)
[2021-11-14] MEDS: levETIRAcetam 500 MG TABLET (FP) PO SCH ×2 (09:45→21:19)
[2021-11-14] MEDS: amLODIPine BESYLATE 10 MG TABLET (FP) PO SCH (09:45)
[2021-11-14] MEDS: ATORVASTATIN CA 20 MG TABLET (FP) PO SCH (21:19)
[2021-11-14] MEDS: MELATONIN 5 MG TABLETS PO PRN (21:19)
[2021-11-14] MEDS: THIAMINE HCL 100 MG TABLET (FP) PO SCH (21:19)
[2021-11-14] MEDS: IBUPROFEN 400 MG TABLET (FP) PO PRN (21:20)
[2021-11-15] MEDS: FERROUS SO4 325 MG TABLET (FP) PO SCH (07:28)
[2021-11-15] MEDS: amLODIPine BESYLATE 10 MG TABLET (FP) PO SCH (09:51)
[2021-11-15] MEDS: PRENATAL VITAMINS W/ FOLIC ACID TABLET (FP) PO SCH (09:52)
[2021-11-15] MEDS: levETIRAcetam 500 MG TABLET (FP) PO SCH ×2 (09:52→21:02)
[2021-11-15] MEDS: IBUPROFEN 400 MG TABLET (FP) PO PRN (16:45)
[2021-11-15] MEDS: ATORVASTATIN CA 20 MG TABLET (FP) PO SCH (21:02)
[2021-11-15] MEDS: MELATONIN 5 MG TABLETS PO PRN (21:02)
[2021-11-15] MEDS: THIAMINE HCL 100 MG TABLET (FP) PO SCH (21:02)
[2021-11-16 07:05] VITALS: TEMP 97.9
[2021-11-16] MEDS: FERROUS SO4 325 MG TABLET (FP) PO SCH (07:17)
[2021-11-16] MEDS: levETIRAcetam 500 MG TABLET (FP) PO SCH ×2 (09:26→21:16)
[2021-11-16] MEDS: PRENATAL VITAMINS W/ FOLIC ACID TABLET (FP) PO SCH (09:26)
[2021-11-16] MEDS: amLODIPine BESYLATE 10 MG TABLET (FP) PO SCH (09:27)
[2021-11-16] MEDS: IBUPROFEN 400 MG TABLET (FP) PO PRN (18:27)
[2021-11-16] MEDS: MELATONIN 5 MG TABLETS PO PRN (21:15)
[2021-11-16] MEDS: ATORVASTATIN CA 20 MG TABLET (FP) PO SCH (21:16)
[2021-11-16] MEDS: THIAMINE HCL 100 MG TABLET (FP) PO SCH (21:16)
[2021-11-17] MEDS: FERROUS SO4 325 MG TABLET (FP) PO SCH (07:04)
[2021-11-17 09:09] VITALS: BP 107/71; PULSE 96
[2021-11-17] MEDS: amLODIPine BESYLATE 10 MG TABLET (FP) PO SCH (09:48)
[2021-11-17] MEDS: levETIRAcetam 500 MG TABLET (FP) PO SCH (09:48)
== END 2021-11-17 09:53 | disposition home or self-care (01) | DRG 772 ==
LOC: YASAS 17:27 → Y3W 19:58
PROVIDERS: ADMIT Allergy & Immunology; ATTEND Allergy & Immunology
PROC: HZ42ZZZ Group Counseling for Substance Abuse Treatment, Cognitive-Behavioral (ICD-10-PCS; principal; 2021-11-03)
DX: F10.20 Alcohol dependence, uncomplicated (principal); E78.5 Hyperlipidemia, unspecified; I10 Essential (primary) hypertension; G40.909 Epilepsy, unspecified, not intractable, without status epilepticus
CPT/HCPCS: 81003; C9803; U0003; U0005

== ENCOUNTER 2021-12-14 13:11 | Inpatient (IN) | payer OTHER ==
[2021-12-14] MEDS ORDERED: MAGNESIUM CITRATE 300 ML BOTTLE PO PRN (13:34)
[2021-12-14] MEDS ORDERED: MAGNESIUM HYDROX 2400MG/30ML ORAL SUSPENSION 30 ML CUP PO PRN (13:34)
[2021-12-14] MEDS ORDERED: ACETAMINOPHEN 325 MG TABLET (FP) PO PRN (13:34)
[2021-12-14] MEDS ORDERED: ONDANSETRON *ODT* 4 MG TABLET SL PRN (13:34)
[2021-12-14] MEDS ORDERED: LOPERAMIDE HCL 2 MG CAPSULE PO PRN (13:34)
[2021-12-14] MEDS ORDERED: BENZOCAINE/MENTHOL (CHLORASEPTIC ) LOZENGE MM PRN (13:34)
[2021-12-14] MEDS ORDERED: MAG HYDROX/AL HYDROX/SIMETH 30 ML UNIT-DOSE CUP PO PRN (13:34)
[2021-12-14] MEDS ORDERED: BISMUTH SUBSALICYLATE 262 MG/15 ML BTL PO PRN (13:34)
[2021-12-14] MEDS ORDERED: DICYCLOMINE HCL 10 MG CAPSULE PO PRN (13:34)
[2021-12-14 14:00] VITALS: BMI 30.7
[2021-12-14 17:16] LABS: HEMATOCRIT 39.5 % (35.4-49); HEMOGLOBIN 13.1 GM/dL (11.7-16.9); MCH 32.8 pg (25.7-33.7); MCHC 33.1 g/dl (32.0-35.9); MEAN CELL VOLUME 99.2 fl (80-96); MEAN PLT VOLUME 7.2 fl (7.5-11.1); PLATELET COUNT 261 10^3/uL (134-434); RBC 3.98 M/mm3 (4.00-5.60); RDW 13.7 % (11.9-15.9)
[2021-12-14 17:33] LABS: ALBUMIN 3.9 g/dl (3.4-5.0); BLOOD UREA NITROGEN 5.9 mg/dL (7-18)
[2021-12-14 17:36] LABS: CREATININE 0.9 mg/dL (0.55-1.3)
[2021-12-14 17:37] LABS: BILIRUBIN,TOTAL 0.7 mg/dL (0.2-1); TOT PROT 7.4 g/dl (6.4-8.2)
[2021-12-14] MEDS ORDERED: amLODIPine BESYLATE 5 MG TABLET (FP) PO ONE (17:41)
[2021-12-14] MEDS: levETIRAcetam 500 MG TABLET (FP) PO SCH ×2 (18:06→22:26)
[2021-12-14] MEDS: PRENATAL VITAMINS W/ FOLIC ACID TABLET (FP) PO SCH (18:06)
[2021-12-14] MEDS: hydrOXYzine PAMOATE 25 MG CAPSULE (FP) PO SCH ×3 (18:07→22:26)
[2021-12-14] MEDS: ATORVASTATIN CA 20 MG TABLET (FP) PO SCH (22:26)
[2021-12-14] MEDS: MELATONIN 5 MG TABLETS PO SCH (22:26)
[2021-12-14] MEDS: THIAMINE HCL 100 MG TABLET (FP) PO SCH (22:26)
[2021-12-15] MEDS: hydrOXYzine PAMOATE 25 MG CAPSULE (FP) PO SCH ×5 (07:15→22:13)
[2021-12-15] MEDS ORDERED: amLODIPine BESYLATE 10 MG TABLET (FP) PO SCH (10:00)
[2021-12-15] MEDS ORDERED: chlordiazePOXIDE HCL 25 MG CAPSULE PO PRN (10:03)
[2021-12-15] MEDS: levETIRAcetam 500 MG TABLET (FP) PO SCH ×2 (10:31→22:13)
[2021-12-15] MEDS: PRENATAL VITAMINS W/ FOLIC ACID TABLET (FP) PO SCH (10:31)
[2021-12-15] MEDS: chlordiazePOXIDE HCL 25 MG CAPSULE PO SCH ×3 (10:34→22:13)
[2021-12-15] MEDS: amLODIPine BESYLATE 10 MG TABLET (FP) PO SCH (10:34)
[2021-12-15] MEDS: IBUPROFEN 400 MG TABLET (FP) PO PRN (14:36)
[2021-12-15] MEDS: ACETAMINOPHEN 325 MG TABLET (FP) PO PRN (17:45)
[2021-12-15] MEDS: ATORVASTATIN CA 20 MG TABLET (FP) PO SCH (22:13)
[2021-12-15] MEDS: MELATONIN 5 MG TABLETS PO SCH (22:13)
[2021-12-15] MEDS: THIAMINE HCL 100 MG TABLET (FP) PO SCH (22:13)
[2021-12-16] MEDS: chlordiazePOXIDE HCL 25 MG CAPSULE PO SCH ×4 (05:53→22:23)
[2021-12-16] MEDS: hydrOXYzine PAMOATE 25 MG CAPSULE (FP) PO SCH ×5 (05:53→22:22)
[2021-12-16] MEDS: levETIRAcetam 500 MG TABLET (FP) PO SCH ×2 (10:35→22:22)
[2021-12-16] MEDS: PRENATAL VITAMINS W/ FOLIC ACID TABLET (FP) PO SCH (10:35)
[2021-12-16] MEDS: amLODIPine BESYLATE 10 MG TABLET (FP) PO SCH (10:36)
[2021-12-16 14:08] LABS: SARS-CoV-2 NAA Not Detected (Not Detected)
[2021-12-16] MEDS: IBUPROFEN 400 MG TABLET (FP) PO PRN (17:39)
[2021-12-16] MEDS: ATORVASTATIN CA 20 MG TABLET (FP) PO SCH (22:22)
[2021-12-16] MEDS: MELATONIN 5 MG TABLETS PO SCH (22:22)
[2021-12-16] MEDS: THIAMINE HCL 100 MG TABLET (FP) PO SCH (22:22)
[2021-12-16] MEDS: ACETAMINOPHEN 325 MG TABLET (FP) PO PRN (22:23)
[2021-12-17] MEDS: chlordiazePOXIDE HCL 25 MG CAPSULE PO SCH ×4 (05:39→22:31)
[2021-12-17] MEDS: hydrOXYzine PAMOATE 25 MG CAPSULE (FP) PO SCH ×5 (05:39→22:30)
[2021-12-17] MEDS: levETIRAcetam 500 MG TABLET (FP) PO SCH ×2 (10:23→22:29)
[2021-12-17] MEDS: PRENATAL VITAMINS W/ FOLIC ACID TABLET (FP) PO SCH (10:23)
[2021-12-17] MEDS: amLODIPine BESYLATE 10 MG TABLET (FP) PO SCH (10:24)
[2021-12-17] MEDS: METHOCARBAMOL 500 MG TABLET PO PRN (22:29)
[2021-12-17] MEDS: ATORVASTATIN CA 20 MG TABLET (FP) PO SCH (22:29)
[2021-12-17] MEDS: THIAMINE HCL 100 MG TABLET (FP) PO SCH (22:30)
[2021-12-17] MEDS: IBUPROFEN 400 MG TABLET (FP) PO PRN (22:30)
[2021-12-17] MEDS: MELATONIN 5 MG TABLETS PO SCH (23:54)
[2021-12-18] MEDS ORDERED: chlordiazePOXIDE HCL 10 MG CAPSULE PO PRN
[2021-12-18] MEDS: hydrOXYzine PAMOATE 25 MG CAPSULE (FP) PO SCH ×5 (05:27→22:07)
[2021-12-18] MEDS: chlordiazePOXIDE HCL 10 MG CAPSULE PO SCH ×4 (05:27→22:07)
[2021-12-18] MEDS: METHOCARBAMOL 500 MG TABLET PO PRN (05:27)
[2021-12-18] MEDS: IBUPROFEN 400 MG TABLET (FP) PO PRN ×2 (06:00→17:44)
[2021-12-18] MEDS: PRENATAL VITAMINS W/ FOLIC ACID TABLET (FP) PO SCH (10:59)
[2021-12-18] MEDS: amLODIPine BESYLATE 10 MG TABLET (FP) PO SCH (10:59)
[2021-12-18] MEDS: levETIRAcetam 500 MG TABLET (FP) PO SCH ×2 (10:59→22:07)
[2021-12-18] MEDS: ATORVASTATIN CA 20 MG TABLET (FP) PO SCH (22:07)
[2021-12-18] MEDS: MELATONIN 5 MG TABLETS PO SCH (22:07)
[2021-12-18] MEDS: THIAMINE HCL 100 MG TABLET (FP) PO SCH (22:07)
[2021-12-19] MEDS: hydrOXYzine PAMOATE 25 MG CAPSULE (FP) PO SCH ×5 (05:53→22:09)
[2021-12-19] MEDS: chlordiazePOXIDE HCL 10 MG CAPSULE PO SCH ×2 (05:53→17:34)
[2021-12-19] MEDS: levETIRAcetam 500 MG TABLET (FP) PO SCH ×2 (10:13→22:08)
[2021-12-19] MEDS: amLODIPine BESYLATE 10 MG TABLET (FP) PO SCH (10:14)
[2021-12-19] MEDS: ACETAMINOPHEN 325 MG TABLET (FP) PO PRN (10:14)
[2021-12-19] MEDS: PRENATAL VITAMINS W/ FOLIC ACID TABLET (FP) PO SCH (10:15)
[2021-12-19] MEDS ORDERED: chlordiazePOXIDE HCL 10 MG CAPSULE PO ONE (12:57)
[2021-12-19] MEDS: ATORVASTATIN CA 20 MG TABLET (FP) PO SCH (22:08)
[2021-12-19] MEDS: THIAMINE HCL 100 MG TABLET (FP) PO SCH (22:09)
[2021-12-19] MEDS: MELATONIN 5 MG TABLETS PO SCH (22:09)
[2021-12-20] MEDS ORDERED: chlordiazePOXIDE HCL 10 MG CAPSULE PO ONE (05:00)
[2021-12-20] MEDS: hydrOXYzine PAMOATE 25 MG CAPSULE (FP) PO SCH ×2 (05:20→10:11)
[2021-12-20 09:49] VITALS: TEMP 97.8
[2021-12-20] MEDS: levETIRAcetam 500 MG TABLET (FP) PO SCH (10:11)
[2021-12-20] MEDS: amLODIPine BESYLATE 10 MG TABLET (FP) PO SCH (10:11)
[2021-12-20] MEDS: PRENATAL VITAMINS W/ FOLIC ACID TABLET (FP) PO SCH (10:11)
[2021-12-20 12:35] VITALS: BP 117/74; PULSE 107
== END 2021-12-20 13:30 | disposition other institution (70) | DRG 774 ==
LOC: YASAS 13:11 → Y3N 15:59
PROVIDERS: ADMIT Allergy & Immunology; ATTEND Allergy & Immunology
PROC: HZ2ZZZZ Detoxification Services for Substance Abuse Treatment (ICD-10-PCS; principal; 2021-12-14)
DX: F10.230 Alcohol dependence with withdrawal, uncomplicated (principal); F14.20 Cocaine dependence, uncomplicated; F12.20 Cannabis dependence, uncomplicated; E78.5 Hyperlipidemia, unspecified; G40.909 Epilepsy, unspecified, not intractable, without status epilepticus; I10 Essential (primary) hypertension; M54.50 Low back pain, unspecified; G89.29 Other chronic pain; R79.89 Other specified abnormal findings of blood chemistry; Z56.0 Unemployment, unspecified; Z59.02 Unsheltered homelessness
CPT/HCPCS: 36415; 80053; 84132; 85027; 86780; 87811; C9803-CS; Q0162; U0003; U0005

== ENCOUNTER 2021-12-20 13:25 | Inpatient (IN) | payer OTHER ==
[2021-12-20] MEDS ORDERED: BENZOCAINE/MENTHOL (CHLORASEPTIC ) LOZENGE MM PRN (15:35)
[2021-12-20] MEDS ORDERED: MAGNESIUM CITRATE 300 ML BOTTLE PO PRN (15:35)
[2021-12-20] MEDS ORDERED: LOPERAMIDE HCL 2 MG CAPSULE PO PRN (15:35)
[2021-12-20] MEDS ORDERED: P-EPHED 60MG/TRIPROLIDI 2.5MG TABLET PO PRN (15:35)
[2021-12-20] MEDS ORDERED: MAG HYDROX/AL HYDROX/SIMETH 30 ML UNIT-DOSE CUP PO PRN (15:35)
[2021-12-20] MEDS ORDERED: guaiFENesin 200 MG/10 ML 10 ML UNIT-DOSE CUPS PO PRN (15:35)
[2021-12-20] MEDS ORDERED: MAGNESIUM HYDROX 2400MG/30ML ORAL SUSPENSION 30 ML CUP PO PRN (15:35)
[2021-12-20] MEDS: ATORVASTATIN CA 40 MG TABLET (FP) PO SCH (21:44)
[2021-12-20] MEDS: levETIRAcetam 500 MG TABLET (FP) PO SCH (21:44)
[2021-12-20] MEDS: THIAMINE HCL 100 MG TABLET (FP) PO SCH (21:44)
[2021-12-21] MEDS: IBUPROFEN 400 MG TABLET (FP) PO PRN (06:33)
[2021-12-21] MEDS: levETIRAcetam 500 MG TABLET (FP) PO SCH ×2 (09:25→21:06)
[2021-12-21] MEDS: amLODIPine BESYLATE 10 MG TABLET (FP) PO SCH (09:25)
[2021-12-21] MEDS: PRENATAL VITAMINS W/ FOLIC ACID TABLET (FP) PO SCH (09:25)
[2021-12-21] MEDS: MELATONIN 5 MG TABLETS PO PRN (21:05)
[2021-12-21] MEDS: THIAMINE HCL 100 MG TABLET (FP) PO SCH (21:05)
[2021-12-21] MEDS: ATORVASTATIN CA 40 MG TABLET (FP) PO SCH (21:06)
[2021-12-22] MEDS: levETIRAcetam 500 MG TABLET (FP) PO SCH ×2 (09:32→21:26)
[2021-12-22] MEDS: amLODIPine BESYLATE 10 MG TABLET (FP) PO SCH (09:32)
[2021-12-22] MEDS: PRENATAL VITAMINS W/ FOLIC ACID TABLET (FP) PO SCH (09:32)
[2021-12-22] MEDS: THIAMINE HCL 100 MG TABLET (FP) PO SCH (21:26)
[2021-12-22] MEDS: ATORVASTATIN CA 40 MG TABLET (FP) PO SCH (21:26)
[2021-12-23] MEDS: amLODIPine BESYLATE 10 MG TABLET (FP) PO SCH (09:47)
[2021-12-23] MEDS: levETIRAcetam 500 MG TABLET (FP) PO SCH ×2 (09:49→21:07)
[2021-12-23] MEDS: PRENATAL VITAMINS W/ FOLIC ACID TABLET (FP) PO SCH (09:49)
[2021-12-23] MEDS: ATORVASTATIN CA 40 MG TABLET (FP) PO SCH (21:07)
[2021-12-23] MEDS: MELATONIN 5 MG TABLETS PO PRN (21:07)
[2021-12-23] MEDS: THIAMINE HCL 100 MG TABLET (FP) PO SCH (21:07)
[2021-12-24] MEDS: PRENATAL VITAMINS W/ FOLIC ACID TABLET (FP) PO SCH (09:31)
[2021-12-24] MEDS: amLODIPine BESYLATE 10 MG TABLET (FP) PO SCH (09:31)
[2021-12-24] MEDS: levETIRAcetam 500 MG TABLET (FP) PO SCH ×2 (09:31→22:03)
[2021-12-24] MEDS: IBUPROFEN 400 MG TABLET (FP) PO PRN ×2 (09:32→22:05)
[2021-12-24] MEDS: THIAMINE HCL 100 MG TABLET (FP) PO SCH (22:03)
[2021-12-24] MEDS: ATORVASTATIN CA 40 MG TABLET (FP) PO SCH (22:03)
[2021-12-25 00:06] LABS: SARS-CoV-2 NAA Not Detected (Not Detected)
[2021-12-25] MEDS: IBUPROFEN 400 MG TABLET (FP) PO PRN ×2 (09:33→21:38)
[2021-12-25] MEDS: levETIRAcetam 500 MG TABLET (FP) PO SCH ×2 (09:33→21:37)
[2021-12-25] MEDS: amLODIPine BESYLATE 10 MG TABLET (FP) PO SCH (09:33)
[2021-12-25] MEDS: PRENATAL VITAMINS W/ FOLIC ACID TABLET (FP) PO SCH (09:33)
[2021-12-25] MEDS: THIAMINE HCL 100 MG TABLET (FP) PO SCH (21:37)
[2021-12-25] MEDS: ATORVASTATIN CA 40 MG TABLET (FP) PO SCH (21:37)
[2021-12-25] MEDS: MELATONIN 5 MG TABLETS PO PRN (21:39)
[2021-12-26] MEDS: levETIRAcetam 500 MG TABLET (FP) PO SCH ×2 (09:29→21:08)
[2021-12-26] MEDS: PRENATAL VITAMINS W/ FOLIC ACID TABLET (FP) PO SCH (09:29)
[2021-12-26] MEDS: amLODIPine BESYLATE 10 MG TABLET (FP) PO SCH (09:29)
[2021-12-26] MEDS: IBUPROFEN 400 MG TABLET (FP) PO PRN ×2 (09:30→21:09)
[2021-12-26] MEDS: ATORVASTATIN CA 40 MG TABLET (FP) PO SCH (21:08)
[2021-12-26] MEDS: THIAMINE HCL 100 MG TABLET (FP) PO SCH (21:08)
[2021-12-26] MEDS: MELATONIN 5 MG TABLETS PO PRN (21:08)
[2021-12-27] MEDS: PRENATAL VITAMINS W/ FOLIC ACID TABLET (FP) PO SCH (09:34)
[2021-12-27] MEDS: amLODIPine BESYLATE 10 MG TABLET (FP) PO SCH (09:34)
[2021-12-27] MEDS: IBUPROFEN 400 MG TABLET (FP) PO PRN ×2 (09:34→21:11)
[2021-12-27] MEDS: levETIRAcetam 500 MG TABLET (FP) PO SCH ×2 (09:34→21:10)
[2021-12-27] MEDS: THIAMINE HCL 100 MG TABLET (FP) PO SCH (21:10)
[2021-12-27] MEDS: MELATONIN 5 MG TABLETS PO PRN (21:10)
[2021-12-27] MEDS: ATORVASTATIN CA 40 MG TABLET (FP) PO SCH (21:10)
[2021-12-28] MEDS: levETIRAcetam 500 MG TABLET (FP) PO SCH ×2 (09:41→21:29)
[2021-12-28] MEDS: IBUPROFEN 400 MG TABLET (FP) PO PRN ×2 (09:41→18:53)
[2021-12-28] MEDS: amLODIPine BESYLATE 10 MG TABLET (FP) PO SCH (09:41)
[2021-12-28] MEDS: PRENATAL VITAMINS W/ FOLIC ACID TABLET (FP) PO SCH (09:42)
[2021-12-28] MEDS: MELATONIN 5 MG TABLETS PO PRN (21:29)
[2021-12-28] MEDS: THIAMINE HCL 100 MG TABLET (FP) PO SCH (21:29)
[2021-12-28] MEDS: ATORVASTATIN CA 40 MG TABLET (FP) PO SCH (21:29)
[2021-12-29] MEDS: IBUPROFEN 400 MG TABLET (FP) PO PRN ×2 (08:40→21:17)
[2021-12-29] MEDS: amLODIPine BESYLATE 10 MG TABLET (FP) PO SCH (10:26)
[2021-12-29] MEDS: ACETAMINOPHEN 325 MG TABLET (FP) PO PRN (10:26)
[2021-12-29] MEDS: levETIRAcetam 500 MG TABLET (FP) PO SCH ×2 (10:26→21:17)
[2021-12-29] MEDS: PRENATAL VITAMINS W/ FOLIC ACID TABLET (FP) PO SCH (10:27)
[2021-12-29] MEDS: THIAMINE HCL 100 MG TABLET (FP) PO SCH (21:17)
[2021-12-29] MEDS: MELATONIN 5 MG TABLETS PO PRN (21:17)
[2021-12-29] MEDS: ATORVASTATIN CA 40 MG TABLET (FP) PO SCH (21:17)
[2021-12-30] MEDS: IBUPROFEN 400 MG TABLET (FP) PO PRN ×3 (06:12→21:38)
[2021-12-30] MEDS: ACETAMINOPHEN 325 MG TABLET (FP) PO PRN (09:34)
[2021-12-30] MEDS: PRENATAL VITAMINS W/ FOLIC ACID TABLET (FP) PO SCH (09:35)
[2021-12-30] MEDS: levETIRAcetam 500 MG TABLET (FP) PO SCH ×2 (09:35→21:38)
[2021-12-30] MEDS: amLODIPine BESYLATE 10 MG TABLET (FP) PO SCH (09:35)
[2021-12-30] MEDS: MELATONIN 5 MG TABLETS PO PRN (21:37)
[2021-12-30] MEDS: ATORVASTATIN CA 40 MG TABLET (FP) PO SCH (21:38)
[2021-12-30] MEDS: THIAMINE HCL 100 MG TABLET (FP) PO SCH (21:38)
[2021-12-31] MEDS: IBUPROFEN 400 MG TABLET (FP) PO PRN ×2 (07:30→21:07)
[2021-12-31] MEDS: PRENATAL VITAMINS W/ FOLIC ACID TABLET (FP) PO SCH (09:26)
[2021-12-31] MEDS: ACETAMINOPHEN 325 MG TABLET (FP) PO PRN ×2 (09:26→16:53)
[2021-12-31] MEDS: levETIRAcetam 500 MG TABLET (FP) PO SCH ×2 (09:26→21:07)
[2021-12-31] MEDS: amLODIPine BESYLATE 10 MG TABLET (FP) PO SCH (09:26)
[2021-12-31] MEDS: MELATONIN 5 MG TABLETS PO PRN (21:07)
[2021-12-31] MEDS: THIAMINE HCL 100 MG TABLET (FP) PO SCH (21:07)
[2021-12-31] MEDS: ATORVASTATIN CA 40 MG TABLET (FP) PO SCH (21:07)
[2022-01-01] MEDS: IBUPROFEN 400 MG TABLET (FP) PO PRN ×2 (06:18→17:19)
[2022-01-01] MEDS: amLODIPine BESYLATE 10 MG TABLET (FP) PO SCH (09:01)
[2022-01-01] MEDS: PRENATAL VITAMINS W/ FOLIC ACID TABLET (FP) PO SCH (09:01)
[2022-01-01] MEDS: levETIRAcetam 500 MG TABLET (FP) PO SCH ×2 (09:01→21:01)
[2022-01-01] MEDS: ACETAMINOPHEN 325 MG TABLET (FP) PO PRN ×2 (09:01→21:01)
[2022-01-01] MEDS: ATORVASTATIN CA 40 MG TABLET (FP) PO SCH (21:01)
[2022-01-01] MEDS: THIAMINE HCL 100 MG TABLET (FP) PO SCH (21:01)
[2022-01-01] MEDS: MELATONIN 5 MG TABLETS PO PRN (21:01)
[2022-01-02] MEDS: IBUPROFEN 400 MG TABLET (FP) PO PRN ×2 (06:18→21:09)
[2022-01-02] MEDS: levETIRAcetam 500 MG TABLET (FP) PO SCH ×2 (09:21→21:09)
[2022-01-02] MEDS: ACETAMINOPHEN 325 MG TABLET (FP) PO PRN ×2 (09:21→16:40)
[2022-01-02] MEDS: PRENATAL VITAMINS W/ FOLIC ACID TABLET (FP) PO SCH (09:21)
[2022-01-02] MEDS: amLODIPine BESYLATE 10 MG TABLET (FP) PO SCH (09:21)
[2022-01-02] MEDS: MELATONIN 5 MG TABLETS PO PRN (21:08)
[2022-01-02] MEDS: THIAMINE HCL 100 MG TABLET (FP) PO SCH (21:08)
[2022-01-02] MEDS: ATORVASTATIN CA 40 MG TABLET (FP) PO SCH (21:09)
[2022-01-03] MEDS: IBUPROFEN 400 MG TABLET (FP) PO PRN ×3 (06:08→21:22)
[2022-01-03] MEDS: amLODIPine BESYLATE 10 MG TABLET (FP) PO SCH (09:45)
[2022-01-03] MEDS: ACETAMINOPHEN 325 MG TABLET (FP) PO PRN (09:45)
[2022-01-03] MEDS: levETIRAcetam 500 MG TABLET (FP) PO SCH ×2 (09:45→21:22)
[2022-01-03] MEDS: PRENATAL VITAMINS W/ FOLIC ACID TABLET (FP) PO SCH (09:45)
[2022-01-03] MEDS: THIAMINE HCL 100 MG TABLET (FP) PO SCH (21:22)
[2022-01-03] MEDS: ATORVASTATIN CA 40 MG TABLET (FP) PO SCH (21:22)
[2022-01-04] MEDS: IBUPROFEN 400 MG TABLET (FP) PO PRN ×3 (06:17→21:32)
[2022-01-04] MEDS: levETIRAcetam 500 MG TABLET (FP) PO SCH ×2 (09:27→21:33)
[2022-01-04] MEDS: PRENATAL VITAMINS W/ FOLIC ACID TABLET (FP) PO SCH (09:27)
[2022-01-04] MEDS: amLODIPine BESYLATE 10 MG TABLET (FP) PO SCH (09:27)
[2022-01-04] MEDS: ACETAMINOPHEN 325 MG TABLET (FP) PO PRN ×2 (09:28→16:53)
[2022-01-04] MEDS: MELATONIN 5 MG TABLETS PO PRN (21:32)
[2022-01-04] MEDS: THIAMINE HCL 100 MG TABLET (FP) PO SCH (21:32)
[2022-01-04] MEDS: ATORVASTATIN CA 40 MG TABLET (FP) PO SCH (21:33)
[2022-01-05] MEDS: IBUPROFEN 400 MG TABLET (FP) PO PRN ×3 (06:09→21:10)
[2022-01-05] MEDS: ACETAMINOPHEN 325 MG TABLET (FP) PO PRN ×2 (09:30→17:03)
[2022-01-05] MEDS: levETIRAcetam 500 MG TABLET (FP) PO SCH ×2 (09:31→21:10)
[2022-01-05] MEDS: amLODIPine BESYLATE 10 MG TABLET (FP) PO SCH (09:31)
[2022-01-05] MEDS: PRENATAL VITAMINS W/ FOLIC ACID TABLET (FP) PO SCH (09:31)
[2022-01-05] MEDS: THIAMINE HCL 100 MG TABLET (FP) PO SCH (21:10)
[2022-01-05] MEDS: ATORVASTATIN CA 40 MG TABLET (FP) PO SCH (21:10)
[2022-01-06] MEDS: IBUPROFEN 400 MG TABLET (FP) PO PRN ×3 (06:17→21:19)
[2022-01-06] MEDS: levETIRAcetam 500 MG TABLET (FP) PO SCH ×2 (09:31→21:19)
[2022-01-06] MEDS: amLODIPine BESYLATE 10 MG TABLET (FP) PO SCH (09:32)
[2022-01-06] MEDS: ACETAMINOPHEN 325 MG TABLET (FP) PO PRN ×2 (09:32→16:50)
[2022-01-06] MEDS: PRENATAL VITAMINS W/ FOLIC ACID TABLET (FP) PO SCH (09:32)
[2022-01-06] MEDS: MELATONIN 5 MG TABLETS PO PRN (21:19)
[2022-01-06] MEDS: ATORVASTATIN CA 40 MG TABLET (FP) PO SCH (21:19)
[2022-01-06] MEDS: THIAMINE HCL 100 MG TABLET (FP) PO SCH (21:19)
[2022-01-07] MEDS: IBUPROFEN 400 MG TABLET (FP) PO PRN ×2 (06:29→21:23)
[2022-01-07] MEDS: amLODIPine BESYLATE 10 MG TABLET (FP) PO SCH (10:05)
[2022-01-07] MEDS: PRENATAL VITAMINS W/ FOLIC ACID TABLET (FP) PO SCH (10:05)
[2022-01-07] MEDS: levETIRAcetam 500 MG TABLET (FP) PO SCH ×2 (10:05→21:23)
[2022-01-07] MEDS: ACETAMINOPHEN 325 MG TABLET (FP) PO PRN ×2 (10:06→14:28)
[2022-01-07] MEDS: ATORVASTATIN CA 40 MG TABLET (FP) PO SCH (21:23)
[2022-01-07] MEDS: THIAMINE HCL 100 MG TABLET (FP) PO SCH (21:24)
[2022-01-08] MEDS: IBUPROFEN 400 MG TABLET (FP) PO PRN ×2 (06:45→16:58)
[2022-01-08] MEDS: amLODIPine BESYLATE 10 MG TABLET (FP) PO SCH (09:33)
[2022-01-08] MEDS: levETIRAcetam 500 MG TABLET (FP) PO SCH ×2 (09:33→21:15)
[2022-01-08] MEDS: PRENATAL VITAMINS W/ FOLIC ACID TABLET (FP) PO SCH (09:33)
[2022-01-08] MEDS: ACETAMINOPHEN 325 MG TABLET (FP) PO PRN ×3 (09:33→21:16)
[2022-01-08] MEDS: ATORVASTATIN CA 40 MG TABLET (FP) PO SCH (21:15)
[2022-01-08] MEDS: THIAMINE HCL 100 MG TABLET (FP) PO SCH (21:15)
[2022-01-08] MEDS: MELATONIN 5 MG TABLETS PO PRN (21:15)
[2022-01-09] MEDS: IBUPROFEN 400 MG TABLET (FP) PO PRN ×3 (06:15→21:26)
[2022-01-09] MEDS: ACETAMINOPHEN 325 MG TABLET (FP) PO PRN ×2 (09:08→17:06)
[2022-01-09] MEDS: levETIRAcetam 500 MG TABLET (FP) PO SCH ×2 (09:08→21:26)
[2022-01-09] MEDS: PRENATAL VITAMINS W/ FOLIC ACID TABLET (FP) PO SCH (09:08)
[2022-01-09] MEDS: amLODIPine BESYLATE 10 MG TABLET (FP) PO SCH (09:08)
[2022-01-09] MEDS: THIAMINE HCL 100 MG TABLET (FP) PO SCH (21:25)
[2022-01-09] MEDS: ATORVASTATIN CA 40 MG TABLET (FP) PO SCH (21:26)
[2022-01-09] MEDS: MELATONIN 5 MG TABLETS PO PRN (21:26)
[2022-01-10] MEDS: IBUPROFEN 400 MG TABLET (FP) PO PRN ×3 (06:12→21:23)
[2022-01-10] MEDS: PRENATAL VITAMINS W/ FOLIC ACID TABLET (FP) PO SCH (09:45)
[2022-01-10] MEDS: levETIRAcetam 500 MG TABLET (FP) PO SCH ×2 (09:45→21:23)
[2022-01-10] MEDS: ACETAMINOPHEN 325 MG TABLET (FP) PO PRN ×2 (09:45→16:35)
[2022-01-10] MEDS: amLODIPine BESYLATE 10 MG TABLET (FP) PO SCH (09:45)
[2022-01-10] MEDS: THIAMINE HCL 100 MG TABLET (FP) PO SCH (21:23)
[2022-01-10] MEDS: ATORVASTATIN CA 40 MG TABLET (FP) PO SCH (21:23)
[2022-01-10] MEDS: MELATONIN 5 MG TABLETS PO PRN (21:23)
[2022-01-11] MEDS: IBUPROFEN 400 MG TABLET (FP) PO PRN ×3 (06:05→21:01)
[2022-01-11] MEDS: PRENATAL VITAMINS W/ FOLIC ACID TABLET (FP) PO SCH (09:30)
[2022-01-11] MEDS: levETIRAcetam 500 MG TABLET (FP) PO SCH ×2 (09:30→21:01)
[2022-01-11] MEDS: amLODIPine BESYLATE 10 MG TABLET (FP) PO SCH (09:31)
[2022-01-11] MEDS: ACETAMINOPHEN 325 MG TABLET (FP) PO PRN ×2 (09:31→16:31)
[2022-01-11] MEDS: ATORVASTATIN CA 40 MG TABLET (FP) PO SCH (21:01)
[2022-01-11] MEDS: THIAMINE HCL 100 MG TABLET (FP) PO SCH (21:01)
[2022-01-11] MEDS: MELATONIN 5 MG TABLETS PO PRN (21:01)
[2022-01-12] MEDS: IBUPROFEN 400 MG TABLET (FP) PO PRN ×3 (06:07→21:17)
[2022-01-12] MEDS: levETIRAcetam 500 MG TABLET (FP) PO SCH ×2 (09:06→21:17)
[2022-01-12] MEDS: amLODIPine BESYLATE 10 MG TABLET (FP) PO SCH (09:06)
[2022-01-12] MEDS: ACETAMINOPHEN 325 MG TABLET (FP) PO PRN ×2 (09:06→17:29)
[2022-01-12] MEDS: PRENATAL VITAMINS W/ FOLIC ACID TABLET (FP) PO SCH (09:06)
[2022-01-12] MEDS: MELATONIN 5 MG TABLETS PO PRN (21:17)
[2022-01-12] MEDS: ATORVASTATIN CA 40 MG TABLET (FP) PO SCH (21:17)
[2022-01-12] MEDS: THIAMINE HCL 100 MG TABLET (FP) PO SCH (21:17)
[2022-01-13] MEDS: IBUPROFEN 400 MG TABLET (FP) PO PRN ×3 (06:47→21:14)
[2022-01-13] MEDS: PRENATAL VITAMINS W/ FOLIC ACID TABLET (FP) PO SCH (09:50)
[2022-01-13] MEDS: amLODIPine BESYLATE 10 MG TABLET (FP) PO SCH (09:50)
[2022-01-13] MEDS: ACETAMINOPHEN 325 MG TABLET (FP) PO PRN ×2 (09:50→18:08)
[2022-01-13] MEDS: levETIRAcetam 500 MG TABLET (FP) PO SCH ×2 (09:52→21:12)
[2022-01-13] MEDS: ATORVASTATIN CA 40 MG TABLET (FP) PO SCH (21:12)
[2022-01-13] MEDS: THIAMINE HCL 100 MG TABLET (FP) PO SCH (21:12)
[2022-01-13] MEDS: MELATONIN 5 MG TABLETS PO PRN (21:12)
[2022-01-14] MEDS: IBUPROFEN 400 MG TABLET (FP) PO PRN ×3 (06:15→21:13)
[2022-01-14] MEDS: levETIRAcetam 500 MG TABLET (FP) PO SCH ×2 (09:06→21:14)
[2022-01-14] MEDS: PRENATAL VITAMINS W/ FOLIC ACID TABLET (FP) PO SCH (09:06)
[2022-01-14] MEDS: ACETAMINOPHEN 325 MG TABLET (FP) PO PRN ×2 (09:06→16:56)
[2022-01-14] MEDS: amLODIPine BESYLATE 10 MG TABLET (FP) PO SCH (09:06)
[2022-01-14] MEDS: THIAMINE HCL 100 MG TABLET (FP) PO SCH (21:13)
[2022-01-14] MEDS: MELATONIN 5 MG TABLETS PO PRN (21:13)
[2022-01-14] MEDS: ATORVASTATIN CA 40 MG TABLET (FP) PO SCH (21:14)
[2022-01-15] MEDS: IBUPROFEN 400 MG TABLET (FP) PO PRN ×3 (06:16→21:05)
[2022-01-15] MEDS: ACETAMINOPHEN 325 MG TABLET (FP) PO PRN ×2 (09:09→18:20)
[2022-01-15] MEDS: levETIRAcetam 500 MG TABLET (FP) PO SCH ×2 (09:10→21:05)
[2022-01-15] MEDS: amLODIPine BESYLATE 10 MG TABLET (FP) PO SCH (09:10)
[2022-01-15] MEDS: PRENATAL VITAMINS W/ FOLIC ACID TABLET (FP) PO SCH (09:11)
[2022-01-15] MEDS: THIAMINE HCL 100 MG TABLET (FP) PO SCH (21:05)
[2022-01-15] MEDS: MELATONIN 5 MG TABLETS PO PRN (21:05)
[2022-01-15] MEDS: ATORVASTATIN CA 40 MG TABLET (FP) PO SCH (21:05)
[2022-01-16] MEDS: IBUPROFEN 400 MG TABLET (FP) PO PRN ×2 (06:16→13:31)
[2022-01-16 06:21] VITALS: TEMP 97.3
[2022-01-16] MEDS: PRENATAL VITAMINS W/ FOLIC ACID TABLET (FP) PO SCH (09:16)
[2022-01-16] MEDS: amLODIPine BESYLATE 10 MG TABLET (FP) PO SCH (09:16)
[2022-01-16] MEDS: levETIRAcetam 500 MG TABLET (FP) PO SCH (09:16)
[2022-01-16] MEDS: ACETAMINOPHEN 325 MG TABLET (FP) PO PRN (09:17)
[2022-01-16 09:19] VITALS: BP 127/77; PULSE 94
== END 2022-01-16 14:40 | disposition home or self-care (01) | DRG 772 ==
LOC: YASAS 13:25 → Y3E 13:26
PROVIDERS: ADMIT Allergy & Immunology; ATTEND Allergy & Immunology
PROC: HZ42ZZZ Group Counseling for Substance Abuse Treatment, Cognitive-Behavioral (ICD-10-PCS; principal; 2021-12-20)
DX: F10.20 Alcohol dependence, uncomplicated (principal); F12.20 Cannabis dependence, uncomplicated; U07.1 COVID-19; E78.5 Hyperlipidemia, unspecified; G40.909 Epilepsy, unspecified, not intractable, without status epilepticus; I10 Essential (primary) hypertension
CPT/HCPCS: 36415; 71046-TC-FY; 80177; C9803-CS; U0003; U0005